=== PATIENT | male | born 1995 | race Caucasian/White ===

== ENCOUNTER → 2019-10-22 | Outpatient (CLI) | payer OTHER ==
[~2019-10-22] MED LIST: Zofran Odt4 MG PO
== END | disposition home or self-care (01) ==
LOC: LAB SHORT 16:21 → LAB EV 16:21
DX: L08.9 Local infection of the skin and subcutaneous tissue, unspecified (principal)
CPT/HCPCS: 87070; 87075; 87205

== ENCOUNTER → 2020-07-11 | Outpatient (CLI) | payer OTHER ==
[2020-07-14 07:11] LABS: CORONAVIRUS (COVID19) CSH-NRL Positive (Negative)
== END | disposition home or self-care (01) ==
LOC: LAB SHORT 14:14 → LAB 14:14
PROVIDERS: Family Medicine
DX: U07.1 COVID-19 (principal)
CPT/HCPCS: U0003

== ENCOUNTER 2021-06-11 07:55 | Emergency (ER) | payer OTHER ==
[~2021-06-11] VITALS: Ht 177.8 cm; Wt 79.4 kg
[2021-06-11] MEDS ORDERED: ZOLP5 PO (08:14)
== END 2021-06-11 08:25 | disposition home or self-care (01) ==
LOC: ER 07:55
DX: G47.00 Insomnia, unspecified (principal); F17.200 Nicotine dependence, unspecified, uncomplicated
CPT/HCPCS: 99283

== ENCOUNTER 2021-07-07 14:59 | Emergency (ER) | payer OTHER ==
[~2021-07-07] VITALS: Ht 177.8 cm; Wt 70.3 kg
[~2021-07-07 14:59] MED LIST changes: +ZOLP5 PO
[2021-07-07 15:37] LABS: BASOPHILS ABSOLUTE AUTO 0.07 K/mm3 (0.00-0.23); BASOPHILS PERCENT AUTO 1 % (0-2); EOSINOPHILS ABSOLUTE AUTO 0.05 K/mm3 (0.00-0.68); EOSINOPHILS PERCENT AUTO 1 % (0-6); Hematocrit 47.2 % (37.0-53.0); IMMATURE GRAN ABSOLUTE AUTO 0.01 K/mm3 (0.00-0.10); IMMATURE GRAN PERCENT AUTO 0 % (0-1); LYMPHOCYTES ABSOLUTE AUTO 2.42 K/mm3 (0.84-5.20); LYMPHOCYTES PERCENT AUTO 33 % (21-46); MONOCYTES ABSOLUTE AUTO 0.46 K/mm3 (0.16-1.47); MONOCYTES PERCENT AUTO 6 % (4-13); Mean Corpuscular HGB 29.1 pg (26.0-34.0); Mean Corpuscular HGB Conc 33.9 g/dL (31.5-36.5); Mean Corpuscular Volume 86 fL (80-100); Mean Platelet Volume 9.7 fL (9.1-12.4); NEUTROPHILS PERCENT AUTO 59 % (41-73); Platelet Count 324 K/mm3 (150-400); RDW Coefficient Variation 11.9 % (11.7-14.2); RDW Standard Deviation 37.5 fL (35.1-46.3); Red Blood Cell Count 5.49 M/mm3 (4.30-5.90); White Blood Cell Count 7.41 K/mm3 (4.00-11.30)
[2021-07-07 15:54] LABS: Alanine Aminotransfer (ALT/SGP 30 U/L (12-78); Albumin, Blood 4.3 g/dL (3.4-5.0); Albumin/Globulin Ratio 1.1 (0.8-1.8); Alk Phos 67 U/L (50-136); Anion Gap 4 mmol/L (6-16); Aspartate Aminotrans (AST/SGOT 21 U/L (12-37); Bilirubin, Total 0.4 mg/dL (0.1-1.0); Blood Urea Nitrogen 21 mg/dL (8-24); Bun/Creatinine Ratio 18.3 (12.0-20.0); CO2, Blood 32 mmol/L (21-32); Calcium, Blood 9.7 mg/dL (8.5-10.1); Chloride, Blood 102 mmol/L (98-108); Creatinine, Blood 1.15 mg/dL (0.60-1.20); Globulin, Blood 3.9 g/dL (2.2-4.0); Glomerular Filtration Rate >60 (60-); Glucose, Blood 104 mg/dL (70-99); Potassium, Blood 4.1 mmol/L (3.5-5.5); Sodium, Blood 138 mmol/L (136-145); Total Protein, Blood 8.2 g/dL (6.4-8.2)
[2021-07-07] MEDS ORDERED: OLAN5 PO (17:53)
[2021-07-07] MEDS ORDERED: ZIPRASIDONE HCL (17:54)
[2021-07-07] MEDS ORDERED: OLANZAPINE5 M1 (17:54)
[2021-07-07] MEDS ORDERED: PRAZOSIN HCL1 M2 PO (17:54)
[2021-07-07] MEDS ORDERED: ZOLPIDEM 5MG (17:55)
[2021-07-07] MEDS ORDERED: ZOLPIDEM 5 MG (17:55)
== END 2021-07-07 18:05 | disposition home or self-care (01) ==
LOC: ER 14:59
PROVIDERS: Physician Assistant
DX: R20.0 Anesthesia of skin (principal); R42 Dizziness and giddiness; T43.595A Adverse effect of other antipsychotics and neuroleptics, initial encounter
CPT/HCPCS: 36415; 70450; 80053; 85025; 99284-25

== ENCOUNTER 2021-09-02 15:35 | Emergency (ER) | payer OTHER ==
[~2021-09-02] VITALS: Ht 172.7 cm; Wt 83.9 kg
[~2021-09-02 15:35] MED LIST changes: +OLAN5 PO; +OLANZAPINE5 M1; +PRAZOSIN HCL1 M2 PO; +ZIPRASIDONE HCL; +ZOLPIDEM 5 MG; +ZOLPIDEM 5MG
== END 2021-09-02 16:42 | disposition home or self-care (01) ==
LOC: ER 15:35
DX: F32.9 Major depressive disorder, single episode, unspecified (principal); Z79.899 Other long term (current) drug therapy

== ENCOUNTER 2025-07-22 15:21 | Emergency (ER) | payer OTHER ==
[~2025-07-22] VITALS: Ht 162.6 cm; Wt 86.2 kg
[~2025-07-22 15:21] MED LIST changes: +BUPROPION HCL200 M1 PO; +LAMICTAL200 MG PO; +OLANZAPINE1024 PO; +PRAZ5 PO; +PROP10 PO
[2025-07-22 16:00] VITALS: BP 139/93
== END 2025-07-22 17:20 | disposition home or self-care (01) ==
LOC: ER 15:21
DX: S60.051A Contusion of right little finger without damage to nail, initial encounter (principal); S60.022A Contusion of left index finger without damage to nail, initial encounter; Z59.89 Other problems related to housing and economic circumstances; Y04.2XXA Assault by strike against or bumped into by another person, initial encounter; Y93.75 Activity, martial arts
CPT/HCPCS: 73130; 99283-25